=== PATIENT | female | born 1930 | race Hispanic/Latino ===

== ENCOUNTER 2018-04-30 13:56 | Observation (INO) | payer MEDICARE, OTHER ==
[~2018-04-30] VITALS: Ht 147.3 cm; Wt 48.7 kg
[2018-04-30] MEDS ORDERED: CEFTRIAXONE SODIUM 2 GM VIAL ONE (14:40)
[2018-04-30] MEDS ORDERED: SODIUM CHLORIDE 0.9% 1000ML 1,000 ML IV ONE (14:40)
[2018-04-30] MEDS ORDERED: SODIUM CHLORIDE 0.9% 500 ML IV ONE (14:41)
[2018-04-30 15:21] LABS: BASOPHILS % (AUTO) 0.2 % (0.0-5.0); EOSINOPHILS % (AUTO) 0.5 % (0.0-8.0); HEMATOCRIT 36.6 % (36-48); LYMPHOCYTES % (AUTO) 7.6 % (21.0-51.0); MEAN CORPUSCULAR HEMOGLOBIN 38.6 pg (27.0-33.0); MEAN CORPUSCULAR HGB CONC 34.7 g/dL (32.0-36.0); MEAN CORPUSCULAR VOLUME 111.4 fL (79-99); NEUTROPHILS % (AUTO) 81.7 % (40.0-77.0); PLATELET COUNT (AUTO) 127 K/uL (130-400); RED BLOOD CELL COUNT(AUTO) 3.29 MIL/uL (4.00-5.50); RED CELL DISTRIBUTION WIDTH 15.1 % (11.0-15.5); WHITE BLOOD COUNT (AUTO) 10.8 K/uL (4.8-10.8)
[2018-04-30 17:58] LABS: APPEARANCE,URINE Clear (CLEAR); BILIRUBIN,URINE Small (NEGATIVE); COLOR,URINE Dark Yellow (YELLOW); GLUCOSE, URINE (UA) Negative (NEGATIVE); KETONES,URINE Trace mg/dL (NEGATIVE); LEUKOCYTE ESTERASE ,URINE Trace (NEGATIVE); NITRATE,URINE Negative (NEGATIVE); OCCULT BLOOD,URINE Negative (NEGATIVE); PROTEIN,URINE POS 1+ (NEGATIVE)
[2018-04-30 19:28] LABS: BACTERIA,URINE Few /HPF (None Seen); RBC,URINE None Seen /HPF (0-1); WBC,URINE 0-1 /HPF (0-1)
[2018-04-30 19:35] LABS: ALBUMIN 3.2 g/dL (3.5-5.0); BILIRUBIN,DIRECT 0.3 mg/dL (0.0-0.3); BILIRUBIN,TOTAL 0.8 mg/dL (0.2-1.0); CREATININE 0.9 mg/dL (0.5-1.5); TOTAL PROTEIN, SERUM 7.2 g/dL (6.0-8.3)
[2018-04-30 19:37] LABS: POTASSIUM 2.7 mmol/L (3.5-5.1)
[2018-04-30] MEDS ORDERED: POTASSIUM BICARB/CIT AC 25 MEQ TABLET.EFF ONE (20:11)
[2018-04-30] MEDS ORDERED: SODIUM CHLORIDE 0.9% 500ML 500 ML IV ONE (20:12)
[2018-04-30 20:26] LABS: AMPHET/METH SCREEN,URINE NEGATIVE (NEGATIVE); BARBITURATE SCREEN, URINE NEGATIVE (NEGATIVE); BENZODIAZEPINES SCREEN,URINE NEGATIVE (NEGATIVE); CANNABINOID SCREEN,URINE NEGATIVE (NEGATIVE); COCAINE SCREEN,URINE NEGATIVE (NEGATIVE); OPIATE SCREEN,URINE NEGATIVE (NEGATIVE); PHENCYCLIDINE SCREEN,URINE NEGATIVE (NEGATIVE)
[2018-04-30 20:30] LABS: SALICYLATE 5.8 mg/dL (2.8-20.0)
[2018-04-30 20:32] LABS: ACETAMINOPHEN < 1 mcg/mL (10-30)
[2018-04-30] MEDS: POTASSIUM CHLORIDE IV SCH ×2 (20:45)
[2018-04-30] MEDS: LACTATED RINGERS IV SCH ×2 (20:45)
[2018-04-30 22:10] VITALS: BP 168/96
[2018-04-30] MEDS ORDERED: METO50TA18 PO (23:28)
[2018-05-01 04:00] VITALS: BP 164/72
[2018-05-01] MEDS: POTASSIUM CHLORIDE IV SCH ×6 (05:14→21:17)
[2018-05-01] MEDS: LACTATED RINGERS IV SCH ×6 (05:14→21:17)
[2018-05-01 05:30] LABS: MAGNESIUM 1.4 mg/dL (1.80-2.40)
[2018-05-01] MEDS ORDERED: MAGNESIUM 2GM PREMIX 50ML 50 ML IV PRN (07:15)
[2018-05-01] MEDS ORDERED: LIDOCAINE HCL-MPF 1% 2ML VIAL IVP PRN (07:15)
[2018-05-01 07:30] VITALS: BP 144/79
[2018-05-01] MEDS: POTASSIUM CHLORIDE 20 MEQ in LACTATED RINGERS 1000ML 1,000 ML IV SCH ×2 (08:49→16:54)
[2018-05-01 11:00] VITALS: BP 133/72
[2018-05-01] MEDS: POTASSIUM CHLORIDE 20MEQ/100ML 100 ML IV PRN ×2 (13:31→18:30)
[2018-05-01 16:00] VITALS: BP 185/88
[2018-05-01 19:54] VITALS: BP 181/86
[2018-05-02] MEDS ORDERED: ZIPRASIDONE MESYLATE 20 MG/VIAL IM PRN (00:30)
[2018-05-02] MEDS ORDERED: ZIPRASIDONE MESYLATE 20 MG/VIAL IM ONE (00:36)
[2018-05-02 04:00] VITALS: BP 182/89
[2018-05-02 05:01] VITALS: BP 164/79
[2018-05-02] MEDS: POTASSIUM CHLORIDE IV SCH ×2 (05:05)
[2018-05-02] MEDS: LACTATED RINGERS IV SCH ×2 (05:05)
[2018-05-02 05:23] LABS: MAGNESIUM 1.8 mg/dL (1.80-2.40); POTASSIUM 4.1 mmol/L (3.5-5.1)
[2018-05-02 07:48] VITALS: BP 170/81
[2018-05-02] MEDS ORDERED: AMLODIPINE BESYLATE 5 MG TAB PO SCH (10:00)
[2018-05-02] MEDS ORDERED: HYDRALAZINE HCL 20 MG/ML VIAL IV PRN (10:00)
[2018-05-02 11:33] VITALS: BP 142/69
[2018-05-02] MEDS ORDERED: METOPROLOL TARTRATE 50 MG TAB PO SCH (17:00)
== END 2018-05-02 14:15 | disposition home or self-care (01) ==
LOC: EDH 13:56 → INTOOBSV 20:15 → EDHIP 20:15 → 3BH 22:12
PROVIDERS: ADMIT Internal Medicine Critical Care Medicine; ATTEND Internal Medicine Critical Care Medicine
DX: E87.6 Hypokalemia (principal); E83.42 Hypomagnesemia; E86.0 Dehydration; F03.90 Unspecified dementia, unspecified severity, without behavioral disturbance, psychotic disturbance, mood disturbance, and anxiety; N39.0 Urinary tract infection, site not specified; Z79.899 Other long term (current) drug therapy
CPT/HCPCS: 36415 ×3; 70450; 71045; 80048; 80076; 80305; 81001; 82140; 82550; 83605; 83690; 83735 ×2; 84132 ×2; 84484; 85025; 87040; 92610; 93005; 96365; 96366 ×2; 96375; 97039 ×3; 97161; 99285; A4218; G0378 ×42; G0480; G0481; G8978; G8979; G8980; G8981; G8982; G8983; J0696; J3475; J3480 ×5; J3486; J7030 ×2; J7040; J7120 ×3

== ENCOUNTER 2018-08-05 14:22 | Emergency (ER) | payer OTHER ==
[~2018-08-05 14:22] MED LIST: METO50TA18 PO
[2018-08-05 16:23] LABS: APPEARANCE,URINE Clear (CLEAR); BILIRUBIN,URINE Negative (NEGATIVE); COLOR,URINE Yellow (YELLOW); GLUCOSE, URINE (UA) Negative (NEGATIVE); KETONES,URINE Negative (NEGATIVE); LEUKOCYTE ESTERASE ,URINE Trace (NEGATIVE); NITRATE,URINE Negative (NEGATIVE); OCCULT BLOOD,URINE Negative (NEGATIVE); PH,URINE 7.5 (5.0-8.0); PROTEIN,URINE Negative (NEGATIVE)
[2018-08-05 17:27] LABS: BACTERIA,URINE Rare /HPF (None Seen); RBC,URINE 0-1 /HPF (0-1); SQUAMOUS EPITHELIAL CELL,UR Rare /HPF (0-2)
[2018-08-05 18:21] LABS: EOSINOPHILS % (AUTO) 0.2 % (0.0-8.0); HEMATOCRIT 33.7 % (36-48); LYMPHOCYTES % (AUTO) 10.4 % (21.0-51.0); MEAN CORPUSCULAR HEMOGLOBIN 36.7 pg (27.0-33.0); MEAN CORPUSCULAR HGB CONC 34.1 g/dL (32.0-36.0); MEAN CORPUSCULAR VOLUME 107.7 fL (79-99); MONOCYTES % (AUTO) 12.4 % (3.0-13.0); PLATELET COUNT (AUTO) 208 K/uL (130-400); RED BLOOD CELL COUNT(AUTO) 3.13 MIL/uL (4.00-5.50); WHITE BLOOD COUNT (AUTO) 7.8 K/uL (4.8-10.8)
[2018-08-05 18:30] LABS: CREATININE 0.7 mg/dL (0.5-1.5)
[2018-08-05 18:31] LABS: ALBUMIN 3.8 g/dL (3.5-5.0)
[2018-08-05 18:42] LABS: BILIRUBIN,TOTAL 1.1 mg/dL (0.2-1.0); TOTAL PROTEIN, SERUM 7.3 g/dL (6.0-8.3)
[2018-08-05 18:51] LABS: B-TYPE NATRIURETIC PEPTIDE 187 pg/mL (0-100)
== END 2018-08-05 19:06 | disposition home or self-care (01) ==
LOC: EDH 14:22
DX: E87.1 Hypo-osmolality and hyponatremia (principal); R60.0 Localized edema; E78.5 Hyperlipidemia, unspecified; I10 Essential (primary) hypertension; I25.10 Atherosclerotic heart disease of native coronary artery without angina pectoris
CPT/HCPCS: 36415; 80053; 81001; 83880; 85025; 93005; 93970